=== PATIENT | female | born 1955 | race African-American/Black ===

== ENCOUNTER 2017-07-19 10:34 | Emergency (ER) | payer OTHER ==
[~2017-07-19] VITALS: Ht 172.7 cm; Wt 98.0 kg
[2017-07-19 11:02] VITALS: Ht 172.7 cm; Wt 98.0 kg
[2017-07-19 14:31] VITALS: BP 139/79
== END 2017-07-19 14:31 | disposition home or self-care (01) ==
LOC: ED 10:34
DX: M54.12 Radiculopathy, cervical region (principal); M79.601 Pain in right arm; M50.322 Other cervical disc degeneration at C5-C6 level; I10 Essential (primary) hypertension; E11.9 Type 2 diabetes mellitus without complications; F32.9 Major depressive disorder, single episode, unspecified; Z88.0 Allergy status to penicillin; Z90.710 Acquired absence of both cervix and uterus
CPT/HCPCS: 82962; J1100; J1885

== ENCOUNTER 2017-07-27 15:15 | Emergency (ER) | payer OTHER ==
[~2017-07-27] VITALS: Ht 172.7 cm; Wt 97.5 kg
[2017-07-27 15:34] VITALS: BP 162/90; Ht 172.7 cm; Wt 97.5 kg
== END 2017-07-27 17:19 | disposition home or self-care (01) ==
LOC: ED 15:15
DX: M54.12 Radiculopathy, cervical region (principal); M25.511 Pain in right shoulder; I10 Essential (primary) hypertension; E11.9 Type 2 diabetes mellitus without complications; F32.9 Major depressive disorder, single episode, unspecified; Z88.0 Allergy status to penicillin
CPT/HCPCS: 82962; J1885

== ENCOUNTER → 2019-01-11 | Outpatient (CLI) | payer OTHER | END | disposition home or self-care (01) | LOC: MA 01-04 14:00 | DX: Z12.31 Encounter for screening mammogram for malignant neoplasm of breast (principal) | CPT/HCPCS: 77067 ==

== ENCOUNTER → 2019-03-18 | Day surgery (SDC) | payer OTHER ==
[~2019-03-18] VITALS: Ht 172.7 cm; Wt 85.7 kg
[2019-03-18 07:31] VITALS: BP 133/78
[2019-03-18 10:16] VITALS: BP 148/88
== END | disposition home or self-care (01) ==
LOC: DS 06:26 → OR 08:00 → GI 08:00
DX: K59.09 Other constipation (principal); K63.5 Polyp of colon; K63.89 Other specified diseases of intestine; E11.9 Type 2 diabetes mellitus without complications; G43.909 Migraine, unspecified, not intractable, without status migrainosus; Z90.710 Acquired absence of both cervix and uterus; Z98.890 Other specified postprocedural states; Z88.0 Allergy status to penicillin; Z88.2 Allergy status to sulfonamides; Z79.82 Long term (current) use of aspirin; Z79.84 Long term (current) use of oral hypoglycemic drugs; Z79.899 Other long term (current) drug therapy; Z88.8 Allergy status to other drugs, medicaments and biological substances
CPT/HCPCS: 45378; J1200; J1610; J2250; J2310; J3010; J3490

== ENCOUNTER → 2020-04-13 | Outpatient (CLI) | payer OTHER | END | disposition home or self-care (01) | LOC: MA 13:18 | PROC: BH02ZZZ Plain Radiography of Bilateral Breasts (ICD-10-PCS; principal; 2020-04-13) | DX: Z12.31 Encounter for screening mammogram for malignant neoplasm of breast (principal) | CPT/HCPCS: 77067 ==